=== PATIENT | female | born 1940 | race African-American/Black ===

== ENCOUNTER 2021-11-10 12:07 | Inpatient (IN) ==
[2021-11-10 13:07] LABS: Bacteria,Urine Occasional /HPF (Few); Mucus,Urine Occasional /LPF (Occasional); RBC,Urine 20 /HPF (0-4); Squamous Epithelial Cell,Urine Moderate /HPF (0-10)
[2021-11-10 13:08] LABS: Bilirubin,Urine Negative (Negative); Blood, Urine Small mg/dL (Negative); Glucose,Urine (UA) >1000 mg/dL (Negative); Ketones,Urine Negative (Negative); Nitrite,Urine Negative (Negative); Protein,Urine 100 mg/dL (Negative); Urine Appearance Cloudy (Clear); Urine Color Yellow (Yellow)
[2021-11-10 13:13] LABS: Barbiturates Screen,Urine Negative (Negative); Benzodiazepines Screen,Urine Negative (Negative); Cannabinoid Screen,Urine Positive (Negative); Opiate Screen,Urine Negative (Negative); Phencyclidine Screen,Urine Negative (Negative)
[2021-11-10] MEDS ORDERED: LORazepam 2 MG/1 ML VIAL IM STA (13:52)
[2021-11-10 14:46] LABS: Basophils # 0.1 10*3/uL (0.0-0.2); Basophils % 0.7 % (0.0-0.8); Eosinophils # 0.1 10*3/uL (0.0-0.87); Eosinophils % 0.8 % (0.00-10.9); Hematocrit 42.1 VOL% (35.7-47.0); Hemoglobin 13.5 GM/DL (12.0-16.0); Immature Granulocytes % 0.3 %; Immature Granulocytes Absolute 0.04 #; Lymphocytes # 1.9 10*3/uL (1.4-4.0); Lymphocytes % 16.4 % (21.3-54.2); Mean Corpuscular HGB Conc 32.1 GM/DL (32-36); Mean Corpuscular Volume 86.8 FL (87-102); Mean Platelet Volume 9.9 FL (9.6-12.0); Monocytes % 8.6 % (1.7-12.7); Neutrophils % 73.2 % (38.7-73.9); Platelet Count 278 T/CUMM (130-400); Red Blood Count 4.85 MC/CUMM (3.8-5.5); White Blood Count 11.6 T/CUMM (4-12)
[2021-11-10 15:12] LABS: Albumin 3.4 G/DL (3.4-5.0); Bilirubin,Total 0.6 MG/DL (0.20-1.00); Calcium 10.2 MG/DL (8.5-10.1); Osmolality,Calculated 284.4 MOS/KG (273-304); Potassium 4.1 MMOL/L (3.5-5.1); Total Protein 7.9 G/DL (6.4-8.2)
[2021-11-10] MEDS ORDERED: ONDANSETRON 4 MG/2 ML VIAL IV PRN (16:28)
[2021-11-10] MEDS ORDERED: GLUCAGON 1 MG VIAL IM PRN ×3 (16:28→23:57)
[2021-11-10] MEDS ORDERED: DEXTROSE 50% 25 GM/50 ML VIAL IV PRN ×2 (16:28→23:57)
[2021-11-10] MEDS ORDERED: MORPHINE 2 MG/1 ML SYRINGE IV PRN (16:39)
[2021-11-10] MEDS ORDERED: DEXTROSE 10% 250 ML BAG IV PRN (16:46)
[2021-11-10] MEDS: INSULIN LISPRO 100 UNIT/ML SUBCUT SCH ×2 (18:10→22:52)
[2021-11-10] MEDS: NITROGLYCERIN SL 0.4 MG TABLET SL PRN ×2 (19:38→20:52)
[2021-11-10] MEDS ORDERED: TICAGRELOR 90 MG TABLET PO ONE (20:30)
[2021-11-10] MEDS: ENOXAPARIN 60 MG/0.6 ML SYRINGE SUBCUT SCH (20:58)
[2021-11-10] MEDS: carvediloL 12.5 MG TABLET PO SCH (20:58)
[2021-11-10] MEDS ORDERED: ATORVASTATIN 40 MG TABLET PO SCH (21:00)
[2021-11-10] MEDS ORDERED: METOPROLOL TARTRATE 5 MG/5 ML VIAL IV ONE (21:47)
[2021-11-10] MEDS ORDERED: MIDAZOLAM 2 MG/2 ML VIAL ONE (22:13)
[2021-11-10] MEDS ORDERED: HYDROmorphone 1 MG/1 ML SYRINGE ONE (22:14)
[2021-11-10] MEDS ORDERED: HEPARIN/NACL 0.9% 2 UNITS/ML 2,000 UNIT/1,000 ML BAG IV ONE (22:14)
[2021-11-10] MEDS ORDERED: EPTIFIBATIDE 75 MG/100 ML BOTTLE IV ONE (22:34)
[2021-11-10] MEDS ORDERED: EPTIFIBATIDE 20,000 MCG/10 ML VIAL ONE ×2 (22:34→22:42)
[2021-11-10] MEDS ORDERED: MORPHINE 10 MG/1 ML VIAL ONE (22:38)
[2021-11-10] MEDS ORDERED: EPTIFIBATIDE 75 MG/100 ML BOTTLE IV SCH (22:44)
[2021-11-10] MEDS ORDERED: NITROGLYCERIN DRIP 50 MG/250 ML BOTTLE IV ONE (22:49)
[2021-11-10] MEDS: BRIMONIDINE/TIMOLOL OPH SOLN 5 ML BOTTLE BOTH EYES SCH (22:52)
[2021-11-10] MEDS ORDERED: HEPARIN/NACL 0.9% 2 UNITS/ML 1,000 UNIT/500 ML BAG IV ONE (23:16)
[2021-11-10] MEDS ORDERED: SODIUM CHLORIDE 0.9% 1,000 ML IV SCH (23:45)
[2021-11-10] MEDS ORDERED: ZALEPLON 5 MG CAPSULE PO PRN (23:57)
[2021-11-11 00:38] LABS: Basophils % 0.1 % (0.0-0.8); Hematocrit 38.3 VOL% (35.7-47.0); Immature Granulocytes % 0.5 %; Immature Granulocytes Absolute 0.07 #; Lymphocytes # 1.2 10*3/uL (1.4-4.0); Lymphocytes % 8.7 % (21.3-54.2); Mean Corpuscular HGB Conc 31.3 GM/DL (32-36); Mean Corpuscular Volume 89.3 FL (87-102); Mean Platelet Volume 10.1 FL (9.6-12.0); Monocytes # 0.7 10*3/uL (0.11-0.8); Monocytes % 5.2 % (1.7-12.7); Neutrophils % 85.5 % (38.7-73.9); Platelet Count 201 T/CUMM (130-400); Red Blood Count 4.29 MC/CUMM (3.8-5.5); Red Cell Distribution Width 12.1 % (9.3-17.3); White Blood Count 13.7 T/CUMM (4-12)
[2021-11-11 01:18] LABS: Albumin 2.6 G/DL (3.4-5.0); Bilirubin,Total 0.6 MG/DL (0.20-1.00); Calcium 8.4 MG/DL (8.5-10.1); Potassium 3.8 MMOL/L (3.5-5.1)
[2021-11-11 01:22] LABS: Calcium 8.3 MG/DL (8.5-10.1); Potassium 3.8 MMOL/L (3.5-5.1); Risk Ratio 7.26
[2021-11-11] MEDS: SODIUM CHLORIDE 0.9% 1,000 ML IV SCH ×2 (01:45→09:29)
[2021-11-11] MEDS: ENOXAPARIN 60 MG/0.6 ML SYRINGE SUBCUT SCH ×2 (04:32→16:39)
[2021-11-11] MEDS: ASPIRIN EC 81 MG TABLET PO SCH (09:20)
[2021-11-11] MEDS: PANTOPRAZOLE 40 MG TABLET PO SCH (09:20)
[2021-11-11] MEDS: carvediloL 12.5 MG TABLET PO SCH ×2 (09:20→20:40)
[2021-11-11] MEDS: TICAGRELOR 90 MG TABLET PO SCH ×2 (09:20→20:40)
[2021-11-11] MEDS: SACUBITRIL/VALSARTAN 49-51 MG TABLET PO SCH ×2 (09:20→20:40)
[2021-11-11] MEDS: BRIMONIDINE/TIMOLOL OPH SOLN 5 ML BOTTLE BOTH EYES SCH ×2 (09:23→20:39)
[2021-11-11] MEDS: INSULIN LISPRO 100 UNIT/ML SUBCUT SCH ×4 (09:31→20:39)
[2021-11-11] MEDS ORDERED: ROSUVASTATIN 20 MG TABLET PO SCH (21:00)
[2021-11-12] MEDS: SODIUM CHLORIDE 0.9% 1,000 ML IV SCH ×2 (01:50→09:22)
[2021-11-12 05:34] LABS: Basophils % 0.4 % (0.0-0.8); Eosinophils # 0.1 10*3/uL (0.0-0.87); Eosinophils % 0.7 % (0.00-10.9); Hematocrit 36.4 VOL% (35.7-47.0); Hemoglobin 11.6 GM/DL (12.0-16.0); Immature Granulocytes % 0.4 %; Immature Granulocytes Absolute 0.03 #; Lymphocytes # 1.5 10*3/uL (1.4-4.0); Lymphocytes % 18.2 % (21.3-54.2); Mean Corpuscular HGB Conc 31.9 GM/DL (32-36); Mean Corpuscular Volume 88.3 FL (87-102); Mean Platelet Volume 10.2 FL (9.6-12.0); Monocytes % 11.3 % (1.7-12.7); Platelet Count 197 T/CUMM (130-400); Red Blood Count 4.12 MC/CUMM (3.8-5.5); Red Cell Distribution Width 12.4 % (9.3-17.3); White Blood Count 8.5 T/CUMM (4-12)
[2021-11-12 05:57] LABS: Calcium 8.4 MG/DL (8.5-10.1); Osmolality,Calculated 279.8 MOS/KG (273-304); Potassium 3.6 MMOL/L (3.5-5.1)
[2021-11-12] MEDS: ENOXAPARIN 60 MG/0.6 ML SYRINGE SUBCUT SCH (06:06)
[2021-11-12] MEDS: ACETAMINOPHEN 325 MG TABLET PO PRN ×2 (06:10→12:22)
[2021-11-12] MEDS ORDERED: MAGNESIUM SULF RIDER 2 GM/50 ML PREMIX IV ONE (06:41)
[2021-11-12] MEDS ORDERED: POTASSIUM CHLORIDE 10 MEQ TABLET PO SCH (09:00)
[2021-11-12] MEDS ORDERED: ENOXAPARIN 40 MG/0.4 ML SYRINGE SUBCUT SCH (09:00)
[2021-11-12] MEDS ORDERED: MAGNESIUM CHLORIDE 64 MG TABLET PO SCH (09:00)
[2021-11-12] MEDS: BRIMONIDINE/TIMOLOL OPH SOLN 5 ML BOTTLE BOTH EYES SCH (09:02)
[2021-11-12] MEDS: INSULIN LISPRO 100 UNIT/ML SUBCUT SCH ×3 (09:03→17:53)
[2021-11-12] MEDS: ASPIRIN EC 81 MG TABLET PO SCH (09:08)
[2021-11-12] MEDS: PANTOPRAZOLE 40 MG TABLET PO SCH (09:08)
[2021-11-12] MEDS: TICAGRELOR 90 MG TABLET PO SCH (09:22)
[2021-11-12] MEDS: carvediloL 12.5 MG TABLET PO SCH (09:25)
[2021-11-12] MEDS: SACUBITRIL/VALSARTAN 49-51 MG TABLET PO SCH (09:25)
[2021-11-12 16:04] VITALS: BP 106/57
[2021-11-12] MEDS ORDERED: carvediloL 3.125 MG TABLET PO SCH (21:00)
== END 2021-11-12 18:54 | disposition home health service (06) | DRG 247 ==
LOC: N.ED 12:07 → N.EDINP 12:07 → SUATTDRO 16:28 → OBSVTOIN 16:28 → N.TELEN 18:05
PROVIDERS: ADMIT Emergency Medicine; ATTEND Internal Medicine Geriatric Medicine
PROC: CLCCHCL (ICD-10-PCS; 2021-11-10 22:45)